=== PATIENT | female | born 1980 | race Hispanic/Latino ===

== ENCOUNTER 2017-11-14 23:07 | Emergency (ER) | payer OTHER ==
[2017-11-14] MEDS ORDERED: IBUPROFEN 600 MG TABLET ONE (23:51)
== END 2017-11-14 23:58 | disposition home or self-care (01) ==
LOC: EDH 23:07
DX: S93.491A Sprain of other ligament of right ankle, initial encounter (principal); X58.XXXA Exposure to other specified factors, initial encounter; Y93.89 Activity, other specified; Y92.098 Other place in other non-institutional residence as the place of occurrence of the external cause; Y99.8 Other external cause status
CPT/HCPCS: 73600

== ENCOUNTER 2017-12-03 20:44 | Emergency (ER) | payer OTHER ==
[2017-12-03] MEDS ORDERED: KETOROLAC TROMETHAMINE 60 MG/2 ML VIAL ONE (22:53)
== END 2017-12-03 23:14 | disposition home or self-care (01) ==
LOC: EDH 20:44
DX: S93.491A Sprain of other ligament of right ankle, initial encounter (principal); F43.10 Post-traumatic stress disorder, unspecified; X58.XXXA Exposure to other specified factors, initial encounter; Y93.89 Activity, other specified; Y92.89 Other specified places as the place of occurrence of the external cause; Y99.8 Other external cause status
CPT/HCPCS: 99283; J1885